=== PATIENT | female | born 1995 | race Caucasian/White ===

== ENCOUNTER 2017-09-08 10:47 | Emergency (ER) | payer BC ==
--- NOTE | 2017-09-08 12:07 | EDM.PDOC ---
ED HPI GENERAL MEDICAL PROBLEM - General Chief Complaint: Genitourinary Problem Stated Complaint: UTI? Time Seen by Provider: 09/08/17 11:22 Source of Information: Reports: Patient, Old Records, RN Notes Reviewed History Limitations: Reports: No Limitations - History of Present Illness INITIAL COMMENTS - FREE TEXT/NARRATIVE: 22-year-old female presents emergency department day with urinary tract symptomology, she was recently treated for a urinary tract infection approximately 10 days ago completed a seven-day course of Bactrim the culture demonstrated no growth. She states she felt well after completing the antibiotics however over the last couple days her symptoms have returned with frequency urgency and dysuria Past Medical History Genitourinary History: Reports: UTI, Recurrent Social & Family History - Tobacco Use Smoking Status *Q: Never Smoker ED ROS GENERAL - Review of Systems Review Of Systems: See Below Constitutional: Reports: No Symptoms : Reports: Dysuria, Frequency, Urgency ED EXAM, RENAL/ - Physical Exam Exam: See Below Exam Limited By: No Limitations General Appearance: Alert, WD/WN, No Apparent Distress Respiratory/Chest: No Respiratory Distress GI/Abdominal: Soft, Non-Tender Course - Vital Signs Last Recorded V/S: Last Vital Signs Temp 98.2 F 09/08/17 11:14 Pulse 93 09/08/17 11:14 Resp 14 09/08/17 11:14 BP 115/76 09/08/17 11:14 Pulse Ox 98 09/08/17 11:14 - Orders/Labs/Meds Orders: Active Orders 24 hr Category Date Time Status CULTURE URINE [RM] Urgent Lab 09/08/17 11:52 Received UA W/MICROSCOPIC [URIN] Stat Lab 09/08/17 11:14 Ordered Labs: Laboratory Tests 09/08/17 Range/Units 11:14 Urine Color Yellow Urine Appearance Turbid Urine pH 5.0 (4.5-8.0) Ur Specific [place] 1.020 (1.008-1.030) Urine Protein 100 H (NEGATIVE) mg/dL Urine Glucose (UA) Normal (NEGATIVE) mg/dL Urine Ketones Negative (NEGATIVE) mg/dL Urine Occult Blood Large (NEGATIVE) Urine Nitrite Negative (NEGATIVE) Urine Bilirubin Negative (NEGATIVE) Urine Urobilinogen Normal (NORMAL) mg/dL Ur Leukocyte Esterase Large (NEGATIVE) Urine RBC Packed H (0-5) Urine WBC Packed H (0-5) Ur Epithelial Cells Moderate Amorphous Sediment Not seen Urine Bacteria Many Urine Mucus Not seen Departure - Departure Time of Disposition: 12:07 Disposition: Home, Self-Care 01 Condition: Good Clinical Impression: UTI, Urinary tract infectious disease - Discharge Information Referrals: PCP,None [Primary Care Provider] - Additional Instructions: Take full course of antibiotics, Please followup with your primary care provider in 5-7 days if not better, please call return to the emergency department with worsening of symptoms. - My Orders Last 24 Hours: My Active Orders 09/08/17 11:52 CULTURE URINE [RM] Urgent - Assessment/Plan Last 24 Hours: My Active Orders 09/08/17 11:52 CULTURE URINE [RM] Urgent Plan: Assessment Acuity = acute Site and laterality = urinary tract infection Etiology = probable bacterial cause Manifestations = dysuria, frequency, urgency Location of injury = Home Lab values = urinalysis reveals packed RBCs and packed WBCs consistent with pyuria and dysuria cultures pending Plan Prescription written for ciprofloxacin 500 mg by mouth twice a day 7 days, follow-up with your primary care in 5-7 days if no improvement, we'll contact you if the culture sensitivity reveals resistance to ciprofloxacin This note was dictated using [employer].in recognition software please call with any questions on syntax or grammar.
== END 2017-09-08 12:25 | disposition home or self-care (01) ==
LOC: JP.ED 10:47
DX: N39.0 Urinary tract infection, site not specified (principal)
CPT/HCPCS: 81001; 87086; 99284